=== PATIENT | male | born 1955 | race Two or more races ===

== ENCOUNTER 2022-06-02 10:54 | Emergency (ER) | payer OTHER ==
[~2022-06-02] VITALS: Ht 162.6 cm; Wt 72.7 kg
[~2022-06-02 10:54] MED LIST: IBUP800T27 PO; METH500T22 PO
[2022-06-02] MEDS ORDERED: LIDO5DIS21 TOP (13:40)
[2022-06-02] MEDS ORDERED: MORPHINE SULFATE 4 MG/ML SYR/VIAL IM ONE (13:45)
[2022-06-02] MEDS ORDERED: KETOROLAC TROMETH 30 MG/ML 1ML VIAL IM ONE (14:30)
[2022-06-02 15:05] VITALS: BP 142/76
== END 2022-06-02 13:40 | disposition home or self-care (01) ==
LOC: ER 10:54
DX: M54.50 Low back pain, unspecified (principal); G89.29 Other chronic pain; E78.5 Hyperlipidemia, unspecified; I10 Essential (primary) hypertension; Z86.73 Personal history of transient ischemic attack (TIA), and cerebral infarction without residual deficits; Z88.6 Allergy status to analgesic agent; Z88.8 Allergy status to other drugs, medicaments and biological substances
CPT/HCPCS: 96372; 99283; J1885; J2270

== ENCOUNTER 2022-06-12 07:32 | Emergency (ER) | payer OTHER, MEDICAID ==
[~2022-06-12] VITALS: Ht 167.6 cm; Wt 75.0 kg
[~2022-06-12 07:32] MED LIST changes: +LIDO5DIS21 TOP
[2022-06-12] MEDS ORDERED: ONDANSETRON HCL 4 MG/2 ML VIAL IM ONE (07:45)
[2022-06-12] MEDS ORDERED: HYDROmorphone HCL 2 MG/ML VL/or syr IM ONE (07:45)
[2022-06-12 08:34] VITALS: BP 127/81
== END 2022-06-12 08:53 | disposition home or self-care (01) ==
LOC: EDBD 07:32 → ER 07:32
DX: G89.29 Other chronic pain (principal); M54.50 Low back pain, unspecified; E78.5 Hyperlipidemia, unspecified; I10 Essential (primary) hypertension; Z86.73 Personal history of transient ischemic attack (TIA), and cerebral infarction without residual deficits; Z88.6 Allergy status to analgesic agent
CPT/HCPCS: 96372; 99284; J1170; J2405

== ENCOUNTER 2022-10-03 07:05 | Emergency (ER) | payer OTHER, MEDICAID ==
[~2022-10-03] VITALS: Ht 167.6 cm; Wt 70.0 kg
[2022-10-03 08:30] LABS: Basophils # (auto) 0.1 10 ^3/uL (0-0.2); Eosinophils # (auto) 0.3 10 ^3/uL (0-0.8); Lymphocytes # (auto) 1.8 10 ^3/uL (0.4-5.4); Monocytes # (auto) 1.1 10 ^3/uL (0-1.3)
[2022-10-03] MEDS ORDERED: IOHEXOL 350 MG/ML 100ML IJ ONE (08:38)
[2022-10-03 08:41] LABS: Hematocrit 41.1 % (41.0-53.0); Hemoglobin 13.4 g/dL (13.5-17.5); Lymphocytes % (auto) 20.5 % (10.0-50.0); Mean Corpuscular Hemoglobin 26.3 pg (28.0-32.0); Mean Corpuscular Hgb Conc. 32.7 g/dL (32.0-36.0); Mean Corpuscular Volume 80.4 fL (80.0-100.0); Monocytes % (auto) 12.1 % (0.0-12.0); Neutrophils # (auto) 5.4 10 ^3/uL (1.6-8.6); Neutrophils % (auto) 62.4 % (37.0-80.0); Red Blood Cells 5.11 10^6/uL (4.5-5.90); White Blood Cell 8.7 10^3/uL (4.4-10.8)
[2022-10-03 08:48] LABS: Albumin 3.2 g/dL (3.4-5.0); Calcium 8.7 mg/dL (8.5-10.1); Potassium 4.4 mmol/L (3.5-5.1)
[2022-10-03 08:52] LABS: BUN/Creatinine Ratio 16.7 (10.0-20.0); Bilirubin, Total 0.3 mg/dL (0.2-1.0); Total Protein 6.6 g/dL (6.4-8.2)
[2022-10-03 09:45] LABS: Urine Bacteria NONE SEEN /hpf (None Seen); Urine Blood Negative /uL (Negative); Urine Specific Gravity 1.009 (1.001-1.035); Urine WBC <1 /hpf (0 - 3)
[2022-10-03 11:46] VITALS: BP 145/70
== END 2022-10-03 11:56 | disposition home or self-care (01) ==
LOC: ER 07:05 → EDBD 07:05 → ER 11:54
DX: J06.9 Acute upper respiratory infection, unspecified (principal); R94.31 Abnormal electrocardiogram [ECG] [EKG]; E88.2 Lipomatosis, not elsewhere classified; J44.9 Chronic obstructive pulmonary disease, unspecified; E78.5 Hyperlipidemia, unspecified; I10 Essential (primary) hypertension; Z86.73 Personal history of transient ischemic attack (TIA), and cerebral infarction without residual deficits; Z88.6 Allergy status to analgesic agent; Z88.5 Allergy status to narcotic agent; Z79.899 Other long term (current) drug therapy; Z98.890 Other specified postprocedural states
CPT/HCPCS: 36415; 71275; 80053; 81001; 83880; 84484; 85025; 93005; 99285; Q9967

== ENCOUNTER 2022-10-26 15:10 | Emergency (ER) | payer OTHER, MEDICAID ==
[~2022-10-26] VITALS: Ht 167.6 cm; Wt 59.0 kg
[2022-10-26 16:32] LABS: Basophils # (auto) 0.1 10 ^3/uL (0-0.2); Basophils % (auto) 1.2 % (0.0-2.0); Eosinophils # (auto) 0.3 10 ^3/uL (0-0.8); Hemoglobin 13.2 g/dL (13.5-17.5); Monocytes # (auto) 0.7 10 ^3/uL (0-1.3); White Blood Cell 6.3 10^3/uL (4.4-10.8)
[2022-10-26 16:34] LABS: Eosinophils % (auto) 4.7 % (0.0-7.0); Hematocrit 39.5 % (41.0-53.0); Lymphocytes # (auto) 2.1 10 ^3/uL (0.4-5.4); Lymphocytes % (auto) 34.1 % (10.0-50.0); Mean Corpuscular Hemoglobin 26.9 pg (28.0-32.0); Mean Corpuscular Hgb Conc. 33.5 g/dL (32.0-36.0); Mean Corpuscular Volume 80.6 fL (80.0-100.0); Monocytes % (auto) 11.4 % (0.0-12.0); Neutrophils # (auto) 3.1 10 ^3/uL (1.6-8.6); Neutrophils % (auto) 48.6 % (37.0-80.0); Red Cell Distribution Width 13.9 % (11.8-14.3)
[2022-10-26] MEDS ORDERED: MECL1TAB42 PO (16:52)
[2022-10-26 16:54] LABS: Albumin 3.8 g/dL (3.4-5.0); Calcium 8.8 mg/dL (8.5-10.1); Potassium 3.7 mmol/L (3.5-5.1)
[2022-10-26 16:58] LABS: Bilirubin, Total 0.4 mg/dL (0.2-1.0)
[2022-10-26 18:14] LABS: Urine Bacteria NONE SEEN /hpf (None Seen); Urine Blood Negative /uL (Negative); Urine Specific Gravity 1.013 (1.001-1.035); Urine WBC <1 /hpf (0 - 3)
[2022-10-26 18:28] VITALS: BP 124/84
== END 2022-10-26 17:21 | disposition home or self-care (01) ==
LOC: ER 15:10 → EDBD 15:10 → ER 17:21
DX: R55 Syncope and collapse (principal); J44.9 Chronic obstructive pulmonary disease, unspecified; I10 Essential (primary) hypertension; Z86.73 Personal history of transient ischemic attack (TIA), and cerebral infarction without residual deficits; Z98.890 Other specified postprocedural states
CPT/HCPCS: 36415; 70450; 71045; 80053; 81001; 84484; 85025; 93005

== ENCOUNTER 2022-12-12 20:38 | Inpatient (IN) | payer OTHER, MEDICAID ==
[~2022-12-12] VITALS: Ht 167.6 cm; Wt 79.4 kg
[~2022-12-12 20:38] MED LIST changes: +IBUP-1456 PO; -IBUP800T27 PO; +MECL1TAB42 PO; +METH-1181 PO; -METH500T22 PO
[2022-12-12] MEDS ORDERED: CLOPIDOGREL BISULFATE 75 MG TAB PO ONE (23:15)
[2022-12-12] MEDS ORDERED: ASPirin 325 MG TAB PO ONE (23:15)
[2022-12-12 23:31] LABS: Eosinophils # (auto) 0.2 10 ^3/uL (0-0.8); Hemoglobin 13.3 g/dL (13.5-17.5)
[2022-12-12 23:33] LABS: Basophils # (auto) 0 10 ^3/uL (0-0.2); Basophils % (auto) 0.5 % (0.0-2.0); Eosinophils % (auto) 2.9 % (0.0-7.0); Hematocrit 40.3 % (41.0-53.0); Lymphocytes # (auto) 1.9 10 ^3/uL (0.4-5.4); Lymphocytes % (auto) 23.7 % (10.0-50.0); Mean Corpuscular Hgb Conc. 33.1 g/dL (32.0-36.0); Mean Corpuscular Volume 81.7 fL (80.0-100.0); Monocytes # (auto) 0.7 10 ^3/uL (0-1.3); Monocytes % (auto) 9.4 % (0.0-12.0); Neutrophils % (auto) 63.5 % (37.0-80.0); Red Blood Cells 4.94 10^6/uL (4.5-5.90); Red Cell Distribution Width 14.4 % (11.8-14.3); White Blood Cell 7.9 10^3/uL (4.4-10.8)
[2022-12-12 23:46] LABS: INR 1.05 (0.9-1.15); Partial Thromboplastin Time 27.9 SEC (24.5-34.5)
[2022-12-12 23:51] LABS: Albumin 3.2 g/dL (3.4-5.0); Calcium 8.3 mg/dL (8.5-10.1); Magnesium 2.4 mg/dL (1.6-2.6); Potassium 3.6 mmol/L (3.5-5.1)
[2022-12-12 23:54] LABS: Bilirubin, Total 0.7 mg/dL (0.2-1.0); Total Protein 6.9 g/dL (6.4-8.2)
[2022-12-13] MEDS ORDERED: hydrALAZINE HCL 20 MG/ML VL IV PRN
[2022-12-13] MEDS ORDERED: ONDANSETRON HCL 4 MG/2 ML VIAL IV PRN
[2022-12-13] MEDS ORDERED: IBUPROFEN 600 MG TAB PO PRN
[2022-12-13] MEDS ORDERED: DOCUSATE SOD 100 MG CAP PO PRN
[2022-12-13] MEDS ORDERED: NITROGLYCERIN 0.4 MG SL TAB SL PRN
[2022-12-13] MEDS: SODIUM CHLORIDE 0.9% 1,000 ML IV SCH ×2 (00:58→20:59)
[2022-12-13 01:18] LABS: Urine Bacteria FEW /hpf (None Seen); Urine Blood Negative /uL (Negative); Urine Mucus FEW (None Seen); Urine WBC 4 /hpf (0 - 3)
[2022-12-13 01:24] LABS: Urine Specific Gravity > 1.035 (1.001-1.035)
[2022-12-13] MEDS ORDERED: MORPHINE SULFATE INJ 2 MG/ml SYRG IV PRN ×2 (01:30)
[2022-12-13 05:37] LABS: Basophils # (auto) 0 10 ^3/uL (0-0.2); Basophils % (auto) 0.7 % (0.0-2.0); Eosinophils # (auto) 0.2 10 ^3/uL (0-0.8); Eosinophils % (auto) 2.8 % (0.0-7.0); Hematocrit 38.8 % (41.0-53.0); Hemoglobin 13.1 g/dL (13.5-17.5); Lymphocytes # (auto) 1.5 10 ^3/uL (0.4-5.4); Lymphocytes % (auto) 22.5 % (10.0-50.0); Mean Corpuscular Hemoglobin 27.2 pg (28.0-32.0); Mean Corpuscular Hgb Conc. 33.7 g/dL (32.0-36.0); Mean Corpuscular Volume 80.7 fL (80.0-100.0); Monocytes # (auto) 0.6 10 ^3/uL (0-1.3); Monocytes % (auto) 9.8 % (0.0-12.0); Neutrophils # (auto) 4.2 10 ^3/uL (1.6-8.6); Neutrophils % (auto) 64.2 % (37.0-80.0); Red Blood Cells 4.82 10^6/uL (4.5-5.90); Red Cell Distribution Width 14.3 % (11.8-14.3); White Blood Cell 6.5 10^3/uL (4.4-10.8)
[2022-12-13 05:38] LABS: Calcium 8.4 mg/dL (8.5-10.1); Potassium 3.8 mmol/L (3.5-5.1)
[2022-12-13 05:45] LABS: Albumin 3.4 g/dL (3.4-5.0); BUN/Creatinine Ratio 22.6 (10.0-20.0); Bilirubin, Total 0.7 mg/dL (0.2-1.0); Total Protein 6.5 g/dL (6.4-8.2)
[2022-12-13] MEDS ORDERED: LORazepam 2MG/ML-1ML VIAL IV PRN ×2 (11:15→13:00)
[2022-12-13] MEDS ORDERED: SODIUM CHLORIDE 0.9% 250 ML IV ONE ×2 (11:15→16:00)
[2022-12-13] MEDS: APIXABAN 5 MG TAB PO SCH ×2 (11:38→23:24)
[2022-12-13] MEDS: LISINOPRIL 20 MG TAB PO SCH (11:39)
[2022-12-13] MEDS ORDERED: IOHEXOL 350 MG/ML 100ML IJ ONE (14:27)
[2022-12-13] MEDS ORDERED: ATORVASTATIN 20 MG TAB PO SCH (22:00)
[2022-12-13 23:10] VITALS: BP 146/93
[2022-12-14] MEDS ORDERED: PNEUMOCOCCAL VACC POLYS 25 MCG/0.5 ML VIAL IM ONE (04:45)
[2022-12-14 05:00] VITALS: BP 170/93
[2022-12-14 06:14] VITALS: BP 158/62
[2022-12-14] MEDS: APIXABAN 5 MG TAB PO SCH (08:56)
[2022-12-14] MEDS: LISINOPRIL 20 MG TAB PO SCH (08:57)
[2022-12-14 09:00] VITALS: BP 143/80
[2022-12-14] MEDS: SODIUM CHLORIDE 0.9% 1,000 ML IV SCH (09:20)
[2022-12-14 11:51] VITALS: BP 143/80
== END 2022-12-14 13:00 | disposition home or self-care (01) | DRG 291 ==
LOC: EDBD 20:38 → EDSEX 20:38 → ER 20:38 → TELE 23:46 → TELE-WESTW 12-13 22:19
PROVIDERS: ADMIT Nurse Practitioner Family; ATTEND Internal Medicine
DX: I11.0 Hypertensive heart disease with heart failure (principal); I50.43 Acute on chronic combined systolic (congestive) and diastolic (congestive) heart failure; N17.9 Acute kidney failure, unspecified; E66.9 Obesity, unspecified; E78.5 Hyperlipidemia, unspecified; E89.0 Postprocedural hypothyroidism; I25.10 Atherosclerotic heart disease of native coronary artery without angina pectoris; J44.9 Chronic obstructive pulmonary disease, unspecified; Z79.01 Long term (current) use of anticoagulants; Z88.6 Allergy status to analgesic agent; Z88.8 Allergy status to other drugs, medicaments and biological substances; Z68.28 Body mass index [BMI] 28.0-28.9, adult; Z85.828 Personal history of other malignant neoplasm of skin; Z90.49 Acquired absence of other specified parts of digestive tract; Z91.199 Patient's noncompliance with other medical treatment and regimen due to unspecified reason; Z86.73 Personal history of transient ischemic attack (TIA), and cerebral infarction without residual deficits
CPT/HCPCS: 36415; 71045; 71275; 80053; 81001; 83735; 83880; 84439; 84443; 84484; 85025; 85610; 85730; 93005; 93306; 93970; 96360; 96361; G0378

== ENCOUNTER 2023-04-15 15:28 | Observation (INO) | payer OTHER, MEDICAID ==
[~2023-04-15] VITALS: Ht 30.5 cm; Wt 83.5 kg
[2023-04-15 22:44] VITALS: BP 143/80; PULSE 60; RESP 20; TEMP 98.2; O2SAT 100; O2SAT 96
[2023-04-16] VITALS (8 sets, daily range): BP systolic 110–143; BP diastolic 78–93; PULSE 72–123; RESP 17–19; TEMP 98–98.3; O2SAT 91–98
[2023-04-16] MEDS ORDERED: CARISOPRODOL 350 MG TAB PO PRN (01:30)
[2023-04-16 02:19] LABS: Eosinophils # (auto) 0.2 10 ^3/uL (0-0.8); Eosinophils % (auto) 2.9 % (0.0-7.0); Hemoglobin 13.3 g/dL (13.5-17.5); Lymphocytes # (auto) 1.6 10 ^3/uL (0.4-5.4); Mean Corpuscular Volume 80.5 fL (80.0-100.0); Monocytes # (auto) 0.8 10 ^3/uL (0-1.3); White Blood Cell 7.3 10^3/uL (4.4-10.8)
[2023-04-16 02:21] LABS: Basophils # (auto) 0 10 ^3/uL (0-0.2); Basophils % (auto) 0.3 % (0.0-2.0); Hematocrit 40.5 % (41.0-53.0); Lymphocytes % (auto) 22.5 % (10.0-50.0); Mean Corpuscular Hemoglobin 26.4 pg (28.0-32.0); Mean Corpuscular Hgb Conc. 32.8 g/dL (32.0-36.0); Monocytes % (auto) 10.7 % (0.0-12.0); Neutrophils # (auto) 4.6 10 ^3/uL (1.6-8.6); Neutrophils % (auto) 63.6 % (37.0-80.0); Red Blood Cells 5.03 10^6/uL (4.5-5.90); Red Cell Distribution Width 14.9 % (11.8-14.3)
[2023-04-16 02:33] LABS: INR 1.02 (0.9-1.15); Partial Thromboplastin Time 28.6 SEC (24.5-34.5); Prothrombin Time 10.7 sec (9.3-11.8)
[2023-04-16 02:38] LABS: Alanine Aminotransferase 14 U/L (7-40); Albumin 3.9 g/dL (3.2-4.8); Alkaline Phosphatase 77 U/L (46-116); Anion Gap 6 (5-15); Aspartate Aminotransferase 12 U/L (13-40); BUN/Creatinine Ratio 15.1 (10.0-20.0); Blood Urea Nitrogen 16 mg/dL (9-23); Calcium 8.7 mg/dL (8.7-10.4); Carbon Dioxide 26 mmol/L (20-30); Chloride 105 mmol/L (98-107); Glucose 98 mg/dL (74-106); Potassium 3.9 mmol/L (3.5-5.1); Sodium 137 mmol/L (136-145)
[2023-04-16 02:39] LABS: Bilirubin, Total 0.7 mg/dL (0.2-1.0); Total Protein 6.5 g/dL (5.7-8.2)
[2023-04-16 07:07] LABS: Urine Bacteria NONE SEEN /hpf (None Seen); Urine Blood Negative /uL (Negative); Urine Clarity Clear (Clear); Urine Color Yellow (Yellow); Urine Mucus FEW (None Seen); Urine Protein, UAD TRACE (Negative); Urine Urobilinogen Normal (Negative); Urine WBC 1 /hpf (0 - 3)
[2023-04-16 07:43] LABS: Urine Specific Gravity > 1.050 (1.001-1.035)
[2023-04-16 08:41] LABS: Hepatitis B Surface Antigen Negative (Negative)
[2023-04-16 09:02] LABS: Hepatitis C Antibody Negative (Negative)
[2023-04-16] MEDS: APIXABAN 5 MG TAB PO SCH ×2 (09:56→21:15)
[2023-04-16] MEDS: PROPRANOLOL HCL 20 MG TAB PO SCH (09:56)
[2023-04-16] MEDS: LISINOPRIL 20 MG TAB PO SCH (09:57)
[2023-04-16] MEDS ORDERED: ASPI81CH59 PO (09:59)
[2023-04-16] MEDS ORDERED: APIX5TAB PO (09:59)
[2023-04-16] MEDS ORDERED: LISI20TA56 PO (09:59)
[2023-04-16] MEDS ORDERED: CHOL20003 PO (09:59)
[2023-04-16] MEDS ORDERED: ACET650T12 PO (09:59)
[2023-04-16] MEDS ORDERED: ROSU1TAB15 PO (09:59)
[2023-04-16] MEDS ORDERED: IBUP1TAB5 PO (09:59)
[2023-04-16] MEDS ORDERED: CHOL20002 PO (09:59)
[2023-04-16] MEDS ORDERED: PROP40TA6 PO (09:59)
[2023-04-16] MEDS ORDERED: TAMS0.4C36 PO (09:59)
[2023-04-16] MEDS ORDERED: CYCL-614 PO (09:59)
[2023-04-16] MEDS ORDERED: MECL-126 PO (09:59)
[2023-04-16] MEDS ORDERED: CARI350T28 PO (09:59)
[2023-04-16] MEDS ORDERED: BACL5TAB2 PO (09:59)
[2023-04-16] MEDS ORDERED: OMEP-448 (09:59)
[2023-04-16] MEDS ORDERED: ASPirin 81 mg TAB PO SCH (10:00)
[2023-04-16] MEDS ORDERED: LORazepam 2MG/ML-1ML VIAL IV ONE (11:00)
[2023-04-16] MEDS ORDERED: MORPHINE SULFATE INJ 2 MG/ml SYRG IV PRN (11:15)
[2023-04-16] MEDS ORDERED: NITROGLYCERIN 0.4 MG SL TAB SL PRN (11:15)
[2023-04-16] MEDS: ACETAMINOPHEN 325 MG TAB PO PRN ×2 (16:40→21:12)
[2023-04-16] MEDS ORDERED: TAMSULOSIN HYDROCHLORIDE 0.4 MG CAP PO SCH (18:00)
[2023-04-16] MEDS ORDERED: ATORVASTATIN 20 MG TAB PO SCH (22:00)
[2023-04-17 05:00] VITALS: BP 141/85; PULSE 95; RESP 16; TEMP 98; O2SAT 92
[2023-04-17 07:16] LABS: Basophils # (auto) 0 10 ^3/uL (0-0.2); Basophils % (auto) 0.7 % (0.0-2.0); Eosinophils # (auto) 0.1 10 ^3/uL (0-0.8); Hemoglobin 13.9 g/dL (13.5-17.5); Monocytes # (auto) 0.7 10 ^3/uL (0-1.3); Neutrophils # (auto) 4.3 10 ^3/uL (1.6-8.6)
[2023-04-17 07:20] LABS: Eosinophils % (auto) 1.6 % (0.0-7.0); Hematocrit 41.1 % (41.0-53.0); Lymphocytes # (auto) 1.7 10 ^3/uL (0.4-5.4); Lymphocytes % (auto) 24.6 % (10.0-50.0); Mean Corpuscular Hemoglobin 27.1 pg (28.0-32.0); Mean Corpuscular Hgb Conc. 33.8 g/dL (32.0-36.0); Mean Corpuscular Volume 80.2 fL (80.0-100.0); Monocytes % (auto) 9.7 % (0.0-12.0); Neutrophils % (auto) 63.4 % (37.0-80.0); Nucleated Red Blood Cells % 0.2 %; Red Blood Cells 5.13 10^6/uL (4.5-5.90); White Blood Cell 6.7 10^3/uL (4.4-10.8)
[2023-04-17 07:27] LABS: Anion Gap 9 (5-15); Calcium 9.1 mg/dL (8.5-10.1); Carbon Dioxide 24 mmol/L (20-30); Chloride 103 mmol/L (98-107); Sodium 136 mmol/L (136-145)
[2023-04-17 07:33] LABS: BUN/Creatinine Ratio 11.3 (10.0-20.0); Blood Urea Nitrogen 12 mg/dL (9-23); Glucose 120 mg/dL (74-106)
[2023-04-17 08:00] VITALS: PULSE 105; PULSE 110; RESP 18; O2SAT 98
[2023-04-17] MEDS: ACETAMINOPHEN 325 MG TAB PO PRN ×2 (08:48→12:40)
[2023-04-17 09:00] VITALS: BP 129/84; PULSE 124; RESP 16; TEMP 98.4; O2SAT 93
[2023-04-17] MEDS: APIXABAN 5 MG TAB PO SCH (09:23)
[2023-04-17] MEDS: LISINOPRIL 20 MG TAB PO SCH (09:24)
[2023-04-17] MEDS: PROPRANOLOL HCL 20 MG TAB PO SCH (09:25)
[2023-04-17] MEDS ORDERED: PNEUMOCOCCAL VACC POLYS 25 MCG/0.5 ML VIAL IM ONE (10:00)
[2023-04-17] MEDS ORDERED: ASPirin 81 mg TAB PO SCH (10:00)
[2023-04-17] MEDS ORDERED: PANTOPRAZOLE 40 MG TAB PO SCH (10:00)
[2023-04-17 14:37] VITALS: BP 129/84; PULSE 94; RESP 17; TEMP 98.6; O2SAT 94
[2023-04-17] MEDS ORDERED: APIX5TAB PO (14:44)
[2023-04-17] MEDS ORDERED: LISI20TA56 PO (14:44)
[2023-04-17] MEDS ORDERED: ASPI81CH59 PO (14:44)
[2023-04-17] MEDS ORDERED: ROSU1TAB15 PO (14:44)
== END 2023-04-17 16:00 | disposition home or self-care (01) ==
LOC: INTOOBSV 22:06 → TELE-WESTW 22:06
PROVIDERS: ADMIT Internal Medicine
DX: G45.9 Transient cerebral ischemic attack, unspecified (principal); R53.1 Weakness; I10 Essential (primary) hypertension; R29.810 Facial weakness; K21.9 Gastro-esophageal reflux disease without esophagitis; E78.5 Hyperlipidemia, unspecified; E89.0 Postprocedural hypothyroidism; Z85.828 Personal history of other malignant neoplasm of skin; Z88.6 Allergy status to analgesic agent; Z88.5 Allergy status to narcotic agent; Z86.73 Personal history of transient ischemic attack (TIA), and cerebral infarction without residual deficits; Z79.82 Long term (current) use of aspirin; Z79.899 Other long term (current) drug therapy
CPT/HCPCS: 36415; 70551; 71045; 80048; 80053; 81001; 85025; 85379; 85610; 85730; 86803; 87340; 90732; 92523; 92610; 93886; 96374; 97110; 97116; 97163; G0009; G0378; J2060; 96372

== ENCOUNTER 2023-05-27 07:37 | Day surgery (SDC) | payer OTHER, MEDICAID ==
[2023-05-18 12:55] LABS: Basophils # (auto) 0.1 10 ^3/uL (0-0.2); Lymphocytes # (auto) 1.9 10 ^3/uL (0.4-5.4)
[2023-05-18 12:58] LABS: Basophils % (auto) 0.7 % (0.0-2.0); Eosinophils # (auto) 0.3 10 ^3/uL (0-0.8); Eosinophils % (auto) 3.7 % (0.0-7.0); Hematocrit 38.8 % (41.0-53.0); Hemoglobin 12.9 g/dL (13.5-17.5); Lymphocytes % (auto) 27.3 % (10.0-50.0); Mean Corpuscular Hemoglobin 26.3 pg (28.0-32.0); Mean Corpuscular Hgb Conc. 33.2 g/dL (32.0-36.0); Mean Corpuscular Volume 79.5 fL (80.0-100.0); Monocytes # (auto) 0.8 10 ^3/uL (0-1.3); Monocytes % (auto) 11.1 % (0.0-12.0); Neutrophils % (auto) 57.2 % (37.0-80.0); Red Blood Cells 4.89 10^6/uL (4.5-5.90)
[2023-05-18 13:20] LABS: INR 1.04 (0.9-1.15); Partial Thromboplastin Time 29.3 SEC (24.5-34.5); Prothrombin Time 10.9 sec (9.3-11.8)
[2023-05-18 13:30] LABS: Alanine Aminotransferase 13 U/L (7-40); Alkaline Phosphatase 70 U/L (46-116); Anion Gap 7 (5-15); BUN/Creatinine Ratio 11.2 (10.0-20.0); Blood Urea Nitrogen 14 mg/dL (9-23); Calcium 9.4 mg/dL (8.5-10.1); Carbon Dioxide 29 mmol/L (20-30); Chloride 105 mmol/L (98-107); Glucose 110 mg/dL (74-106); Potassium 4.3 mmol/L (3.5-5.1); Sodium 141 mmol/L (136-145)
[2023-05-18 13:31] LABS: Albumin 4.3 g/dL (3.2-4.8); Aspartate Aminotransferase 15 U/L (13-40); Bilirubin, Total 0.5 mg/dL (0.2-1.0)
[2023-05-18 13:32] LABS: Total Protein 7.1 g/dL (5.7-8.2)
[2023-05-26 10:52] LABS: Basophils # (auto) 0.1 10 ^3/uL (0-0.2); Eosinophils # (auto) 0.3 10 ^3/uL (0-0.8); Eosinophils % (auto) 5.2 % (0.0-7.0); Hematocrit 38.5 % (41.0-53.0); Monocytes # (auto) 0.7 10 ^3/uL (0-1.3); Neutrophils # (auto) 3.2 10 ^3/uL (1.6-8.6); Nucleated Red Blood Cells % 0.1 %; Red Cell Distribution Width 14.5 % (11.8-14.3)
[2023-05-26 10:55] LABS: Basophils % (auto) 1.1 % (0.0-2.0); Hemoglobin 12.7 g/dL (13.5-17.5); Lymphocytes % (auto) 31.4 % (10.0-50.0); Mean Corpuscular Hemoglobin 26.3 pg (28.0-32.0); Mean Corpuscular Hgb Conc. 32.9 g/dL (32.0-36.0); Mean Corpuscular Volume 79.9 fL (80.0-100.0); Monocytes % (auto) 10.7 % (0.0-12.0); Neutrophils % (auto) 51.6 % (37.0-80.0); Red Blood Cells 4.82 10^6/uL (4.5-5.90); White Blood Cell 6.2 10^3/uL (4.4-10.8)
[2023-05-26 11:00] LABS: INR 1.04 (0.9-1.15); Partial Thromboplastin Time 30.5 SEC (24.5-34.5); Prothrombin Time 10.9 sec (9.3-11.8)
[2023-05-26 11:16] LABS: Alanine Aminotransferase 16 U/L (7-40); Albumin 4.1 g/dL (3.2-4.8); Alkaline Phosphatase 77 U/L (46-116); Anion Gap 6 (5-15); Aspartate Aminotransferase 15 U/L (13-40); BUN/Creatinine Ratio 15.4 (10.0-20.0); Blood Urea Nitrogen 19 mg/dL (9-23); Calcium 9.3 mg/dL (8.5-10.1); Carbon Dioxide 28 mmol/L (20-30); Chloride 106 mmol/L (98-107); Glucose 115 mg/dL (74-106); Potassium 4.2 mmol/L (3.5-5.1); Sodium 140 mmol/L (136-145)
[2023-05-26 11:17] LABS: Bilirubin, Total 0.3 mg/dL (0.2-1.0); Total Protein 6.8 g/dL (5.7-8.2)
[~2023-05-27] VITALS: Ht 167.6 cm; Wt 78.9 kg
[~2023-05-27 07:37] MED LIST changes: +APIX5TAB PO; +ASPI81CH59 PO; +BACL5TAB2 PO; +CARI350T28 PO; +CHOL20003 PO; +CYCL-614 PO; -IBUP-1456 PO; +IBUP1TAB5 PO; -LIDO5DIS21 TOP; +LISI20TA56 PO; +MECL-126 PO; -MECL1TAB42 PO; -METH-1181 PO; +OMEP-448; +PROP40TA6 PO; +ROSU1TAB15 PO
[2023-05-27] MEDS ORDERED: LIDOCAINE VISCOUS 2% 15ML UD MT ONE (09:00)
[2023-05-27] MEDS ORDERED: fentaNYL CITRATE 100 MCG/2 ML VL IV ONE (09:00)
[2023-05-27] MEDS ORDERED: MIDAZOLAM HCL 2MG/2ML 2ml VIAL (1mg/ml) IV ONE (09:00)
== END 2023-05-27 10:29 | disposition home or self-care (01) ==
LOC: CATH 07:37
PROVIDERS: ATTEND Student in an Organized Health Care Education/Training Program
DX: I11.0 Hypertensive heart disease with heart failure (principal); I50.9 Heart failure, unspecified; J44.9 Chronic obstructive pulmonary disease, unspecified; F41.9 Anxiety disorder, unspecified; E78.5 Hyperlipidemia, unspecified; Z88.6 Allergy status to analgesic agent; Z86.73 Personal history of transient ischemic attack (TIA), and cerebral infarction without residual deficits; Z79.1 Long term (current) use of non-steroidal anti-inflammatories (NSAID); Z79.82 Long term (current) use of aspirin; Z79.899 Other long term (current) drug therapy
CPT/HCPCS: 36415; 80053; 85025; 85610; 85730; 93312; J2250; J3010; J7040; 99152

== ENCOUNTER 2023-07-15 07:50 | Emergency (ER) | payer OTHER, MEDICAID ==
[~2023-07-15] VITALS: Ht 167.6 cm; Wt 81.8 kg
[2023-07-15 08:18] VITALS: PULSE 55; RESP 15; O2SAT 95
[2023-07-15 09:28] LABS: Basophils # (auto) 0.1 10 ^3/uL (0-0.2); Eosinophils # (auto) 0.2 10 ^3/uL (0-0.8); Eosinophils % (auto) 3.9 % (0.0-7.0); Hematocrit 37.6 % (41.0-53.0); Hemoglobin 12.1 g/dL (13.5-17.5); Lymphocytes # (auto) 1.8 10 ^3/uL (0.4-5.4); Lymphocytes % (auto) 32.4 % (10.0-50.0); Mean Corpuscular Hemoglobin 25.5 pg (28.0-32.0); Mean Corpuscular Hgb Conc. 32.2 g/dL (32.0-36.0); Mean Corpuscular Volume 79.4 fL (80.0-100.0); Monocytes # (auto) 0.6 10 ^3/uL (0-1.3); Monocytes % (auto) 11.6 % (0.0-12.0); Neutrophils # (auto) 2.9 10 ^3/uL (1.6-8.6); Neutrophils % (auto) 51.1 % (37.0-80.0); Nucleated Red Blood Cells % 0.1 %; Red Blood Cells 4.74 10^6/uL (4.5-5.90); Red Cell Distribution Width 14.5 % (11.8-14.3); White Blood Cell 5.6 10^3/uL (4.4-10.8)
[2023-07-15 09:46] LABS: Alanine Aminotransferase 16 U/L (7-40); Alkaline Phosphatase 85 U/L (46-116); Anion Gap 4 (5-15); Aspartate Aminotransferase 21 U/L (13-40); BUN/Creatinine Ratio 14.4 (10.0-20.0); Blood Urea Nitrogen 18 mg/dL (9-23); Calcium 9.1 mg/dL (8.5-10.1); Carbon Dioxide 27 mmol/L (20-30); Chloride 107 mmol/L (98-107); Glucose 102 mg/dL (74-106); Potassium 4.9 mmol/L (3.5-5.1); Sodium 138 mmol/L (136-145)
[2023-07-15 09:47] LABS: Bilirubin, Total 0.3 mg/dL (0.2-1.0); Total Protein 6.7 g/dL (5.7-8.2)
[2023-07-15 10:25] LABS: Lipase 46 U/L (12-53)
[2023-07-15 14:00] VITALS: BP 122/76; PULSE 84; RESP 15; O2SAT 93
[2023-07-15] MEDS ORDERED: DOCU-94 PO (14:02)
[2023-07-15 14:29] LABS: Urine Epithelial Cast None Seen /hpf (<5)
[2023-07-15 14:51] LABS: Urine Bacteria NONE SEEN /hpf (None Seen); Urine Blood Negative /uL (Negative); Urine Clarity Clear (Clear); Urine Color Colorless (Yellow); Urine Protein, UAD Negative (Negative); Urine Urobilinogen Normal (Negative); Urine WBC <1 /hpf (0 - 3); Urine pH 5.5 (5.0-8.0)
== END 2023-07-15 15:31 | disposition home or self-care (01) ==
LOC: ER 07:50 → EDBD 07:50 → ER 15:31
DX: K57.30 Diverticulosis of large intestine without perforation or abscess without bleeding (principal); R10.11 Right upper quadrant pain; I10 Essential (primary) hypertension; E78.5 Hyperlipidemia, unspecified; J44.9 Chronic obstructive pulmonary disease, unspecified; Z86.73 Personal history of transient ischemic attack (TIA), and cerebral infarction without residual deficits; Z98.890 Other specified postprocedural states; Z88.8 Allergy status to other drugs, medicaments and biological substances; Z79.899 Other long term (current) drug therapy
CPT/HCPCS: 36415; 74176; 80053; 81001; 83690; 85025; 93005

== ENCOUNTER → 2023-11-04 | Emergency (ER) | payer OTHER, MEDICAID ==
[~2023-11-04] MED LIST changes: +CARI-579 PO; -CARI350T28 PO; +DOCU-94 PO; -ROSU1TAB15 PO; +ROSU40TA47 PO
== END | disposition left against medical advice (07) ==
LOC: ER 15:13
DX: R06.02 Shortness of breath (principal); Z53.21 Procedure and treatment not carried out due to patient leaving prior to being seen by health care provider

== ENCOUNTER → 2023-11-17 | Outpatient (CLI) | payer OTHER, MEDICAID ==
[2023-11-17 09:58] LABS: Alanine Aminotransferase 12 U/L (7-40); Albumin 4.3 g/dL (3.2-4.8); Alkaline Phosphatase 73 U/L (46-116); Anion Gap 4 (5-15); Aspartate Aminotransferase 13 U/L (13-40); BUN/Creatinine Ratio 14.9 (10.0-20.0); Blood Urea Nitrogen 20 mg/dL (9-23); Calcium 9.4 mg/dL (8.5-10.1); Carbon Dioxide 28 mmol/L (20-30); Chloride 106 mmol/L (98-107); Glucose 118 mg/dL (74-106); Potassium 4.7 mmol/L (3.5-5.1); Sodium 138 mmol/L (136-145)
[2023-11-17 09:59] LABS: Bilirubin, Total 0.6 mg/dL (0.2-1.0)
== END | disposition home or self-care (01) ==
LOC: LAB 09:07
PROVIDERS: ATTEND Student in an Organized Health Care Education/Training Program
DX: I11.0 Hypertensive heart disease with heart failure (principal); I50.9 Heart failure, unspecified
CPT/HCPCS: 36415; 80053; 83880

== ENCOUNTER → 2023-11-20 | Outpatient (CLI) | payer OTHER, MEDICAID | END | disposition home or self-care (01) | LOC: XYW 10:02 | PROVIDERS: ATTEND Student in an Organized Health Care Education/Training Program | DX: I51.89 Other ill-defined heart diseases (principal); I50.9 Heart failure, unspecified | CPT/HCPCS: 93306 ==

== ENCOUNTER 2023-12-27 16:18 | Inpatient (IN) | payer OTHER, MEDICAID ==
[~2023-12-27] VITALS: Ht 165.1 cm; Wt 81.5 kg
[2023-12-27 19:30] VITALS: BP 142/91; PULSE 55; RESP 18; TEMP 98.1; O2SAT 96
[2023-12-27] MEDS ORDERED: MORPHINE SULFATE INJ 2 MG/ml SYRG IV PRN (20:30)
[2023-12-27] MEDS ORDERED: NITROGLYCERIN 0.4 MG SL TAB SL PRN (20:30)
[2023-12-27 20:51] VITALS: BP 142/91; PULSE 55; RESP 18; TEMP 98.1; O2SAT 96
[2023-12-27 22:00] VITALS: BP 140/89; PULSE 71; RESP 19; TEMP 98.2; O2SAT 94
[2023-12-27] MEDS: PANTOPRAZOLE 40 MG TAB PO ONE (22:04)
[2023-12-27] MEDS: PROPRANOLOL HCL 20 MG TAB PO SCH (22:04)
[2023-12-27] MEDS: APIXABAN 5 MG TAB PO SCH (22:04)
[2023-12-27] MEDS: DOCUSATE SOD 100 MG CAP PO SCH (22:04)
[2023-12-28] VITALS (7 sets, daily range): BP systolic 120–146; BP diastolic 75–80; PULSE 53–79; RESP 16–20; TEMP 97.8–98.9; O2SAT 93–100
[2023-12-28] MEDS: ONDANSETRON HCL 4 MG/2 ML VIAL IV ONE (05:00)
[2023-12-28] MEDS: ACETAMINOPHEN 325 MG TAB PO ONE (05:22)
[2023-12-28] MEDS: PANTOPRAZOLE 40 MG TAB PO SCH (05:22)
[2023-12-28 06:18] LABS: Basophils # (auto) 0 10 ^3/uL (0-0.2); Eosinophils # (auto) 0.2 10 ^3/uL (0-0.8); Eosinophils % (auto) 2.6 % (0.0-7.0); Hemoglobin 13.3 g/dL (13.5-17.5); Lymphocytes # (auto) 1.3 10 ^3/uL (0.4-5.4); Monocytes # (auto) 0.7 10 ^3/uL (0-1.3); Neutrophils # (auto) 5.1 10 ^3/uL (1.6-8.6); Red Cell Distribution Width 14.9 % (11.8-14.3)
[2023-12-28 06:21] LABS: Basophils % (auto) 0.7 % (0.0-2.0); Hematocrit 40.2 % (41.0-53.0); Mean Corpuscular Hemoglobin 25.2 pg (28.0-32.0); Mean Corpuscular Hgb Conc. 33.2 g/dL (32.0-36.0); Monocytes % (auto) 9.3 % (0.0-12.0); Neutrophils % (auto) 69.4 % (37.0-80.0); Red Blood Cells 5.29 10^6/uL (4.5-5.90); White Blood Cell 7.4 10^3/uL (4.4-10.8)
[2023-12-28 06:24] LABS: Alanine Aminotransferase 13 U/L (7-40); Albumin 4.4 g/dL (3.2-4.8); Alkaline Phosphatase 81 U/L (46-116); Anion Gap 7 (5-15); Aspartate Aminotransferase 13 U/L (13-40); BUN/Creatinine Ratio 11.6 (10.0-20.0); Bilirubin, Total 0.7 mg/dL (0.2-1.0); Blood Urea Nitrogen 13 mg/dL (9-23); Calcium 9.5 mg/dL (8.5-10.1); Carbon Dioxide 27 mmol/L (20-30); Chloride 104 mmol/L (98-107); Cholesterol 139 mg/dL (< 200); Glucose 111 mg/dL (74-106); HDL Cholesterol 30 mg/dL (40-59); LDL Cholesterol 73 mg/dL (< 100); Potassium 3.7 mmol/L (3.5-5.1); Sodium 138 mmol/L (136-145); Total Protein 7.2 g/dL (5.7-8.2); Triglycerides 169 mg/dL (< 150)
[2023-12-28 08:12] LABS: INR 1.05 (0.9-1.15); Partial Thromboplastin Time 28.8 SEC (24.5-34.5); Prothrombin Time 11.1 sec (9.3-11.8)
[2023-12-28] MEDS: LISINOPRIL 20 MG TAB PO SCH (09:35)
[2023-12-28] MEDS: ASPirin 81 mg TAB PO SCH (09:35)
[2023-12-28] MEDS ORDERED: PATIENTS OWN MEDICATION (Aspirin (Aspirin Low Dose) 1 TAB) PO SCH (10:00)
[2023-12-28 10:28] LABS: Urine Bacteria None Seen /hpf (None Seen)
[2023-12-28 10:48] LABS: Urine Blood Negative /uL (Negative); Urine Clarity Clear (Clear); Urine Color Yellow (Yellow); Urine Mucus FEW (None Seen); Urine Protein, UAD TRACE (Negative); Urine Specific Gravity 1.025 (1.001-1.035); Urine Urobilinogen 2 mg/dL (Negative); Urine WBC 1 /hpf (0 - 3); Urine pH 6.5 (5.0-9.0)
[2023-12-28 11:05] LABS: Amphetamine Screen, Urine Neg (NEGATIVE); Barbiturate Scree,Urine Neg (NEGATIVE); Benzodiazephine Screen, Urine Neg (NEGATIVE); Cannabinoid Screen, Urine Neg (NEGATIVE); Cocaine Screen, Urine Neg (NEGATIVE); Opiate Scree,Urine Neg (NEGATIVE); Phencyclidine Screen, Urine Neg (NEGATIVE)
[2023-12-28 11:38] LABS: Free T3 2.96 pg/mL (2.3-4.2)
[2023-12-28 11:39] LABS: Free T4 (Free Thyroxine) 0.99 ng/dL (0.89-1.76)
[2023-12-28] MEDS: ACETAMINOPHEN 325 MG TAB PO PRN (14:33)
[2023-12-28] MEDS: ATORVASTATIN 20 MG TAB PO SCH (21:37)
[2023-12-29] VITALS (7 sets, daily range): BP systolic 138–156; BP diastolic 74–85; PULSE 55–76; RESP 16–20; TEMP 36.9; O2SAT 92–96
[2023-12-29 08:06] LABS: RPR Non Reactive (Non Reactive)
[2023-12-29] MEDS: LORazepam 2MG/ML-1ML VIAL IV PRN (09:16)
[2023-12-29] MEDS: CLOPIDOGREL BISULFATE 75 MG TAB PO SCH (10:22)
[2023-12-29] MEDS ORDERED: ACET-1882 PO (19:42)
[2023-12-29] MEDS ORDERED: CLOP75TA70 PO (19:42)
[2023-12-29] MEDS ORDERED: PANT40T PO (19:42)
[2023-12-29] MEDS ORDERED: ATOR20TA50 PO (19:42)
== END 2023-12-29 20:25 | disposition home or self-care (01) | DRG 69 ==
LOC: UNDOADMIN 18:54 → TELE-E-ADS 18:54 → EAST 20:33
PROVIDERS: ADMIT Internal Medicine; ATTEND Internal Medicine
DX: G45.9 Transient cerebral ischemic attack, unspecified (principal); I69.351 Hemiplegia and hemiparesis following cerebral infarction affecting right dominant side; E78.5 Hyperlipidemia, unspecified; H54.62 Unqualified visual loss, left eye, normal vision right eye; I10 Essential (primary) hypertension; J44.9 Chronic obstructive pulmonary disease, unspecified; K21.9 Gastro-esophageal reflux disease without esophagitis; Z85.828 Personal history of other malignant neoplasm of skin; Z83.3 Family history of diabetes mellitus; Z82.49 Family history of ischemic heart disease and other diseases of the circulatory system; Z82.3 Family history of stroke; Z87.891 Personal history of nicotine dependence; Z79.899 Other long term (current) drug therapy; Z79.82 Long term (current) use of aspirin; Z79.02 Long term (current) use of antithrombotics/antiplatelets; Z79.01 Long term (current) use of anticoagulants
CPT/HCPCS: 36415; 70551; 80053; 80061; 80307; 81001; 82306; 82607; 83036; 84439; 84443; 84481; 85025; 85610; 85730; 86592; 87081; 93886; 95819; 97163; G0378

== ENCOUNTER 2024-02-02 09:22 | Emergency (ER) | payer OTHER, MEDICAID ==
[~2024-02-02] VITALS: Ht 167.6 cm; Wt 70.4 kg
[~2024-02-02 09:22] MED LIST changes: +ACET-1882 PO; +ATOR20TA50 PO; +CLOP75TA70 PO; -IBUP1TAB5 PO; +PANT40T PO; -ROSU40TA47 PO
[2024-02-02 09:55] LABS: Eosinophils # (auto) 0.1 10 ^3/uL (0-0.8); Monocytes # (auto) 0.7 10 ^3/uL (0-1.3); Neutrophils # (auto) 2.7 10 ^3/uL (1.6-8.6); White Blood Cell 5.2 10^3/uL (4.4-10.8)
[2024-02-02 09:56] LABS: Basophils # (auto) 0.1 10 ^3/uL (0-0.2); Basophils % (auto) 1.1 % (0.0-2.0); Eosinophils % (auto) 1.8 % (0.0-7.0); Hematocrit 39.1 % (41.0-53.0); Hemoglobin 12.8 g/dL (13.5-17.5); Lymphocytes # (auto) 1.6 10 ^3/uL (0.4-5.4); Lymphocytes % (auto) 31.2 % (10.0-50.0); Mean Corpuscular Hgb Conc. 32.6 g/dL (32.0-36.0); Mean Corpuscular Volume 76.7 fL (80.0-100.0); Monocytes % (auto) 12.8 % (0.0-12.0); Neutrophils % (auto) 53.1 % (37.0-80.0); Nucleated Red Blood Cells % 0.1 %; Red Cell Distribution Width 16.4 % (11.8-14.3)
[2024-02-02 10:03] LABS: Chloride 105 mmol/L (98-107); Potassium 3.7 mmol/L (3.5-5.1); Sodium 138 mmol/L (136-145)
[2024-02-02 10:04] LABS: Anion Gap 5 (5-15); Calcium 9.5 mg/dL (8.7-10.4); Carbon Dioxide 28 mmol/L (20-30)
[2024-02-02 10:09] LABS: Blood Urea Nitrogen 17 mg/dL (9-23); Glucose 96 mg/dL (74-106)
[2024-02-02 11:14] LABS: Urine Bacteria None Seen /hpf (None Seen)
[2024-02-02 11:58] LABS: Urine Blood TRACE /uL (Negative); Urine Clarity Clear (Clear); Urine Color Light-Yellow (Yellow); Urine Mucus FEW (None Seen); Urine Protein, UAD TRACE (Negative); Urine Specific Gravity 1.011 (1.001-1.035); Urine Urobilinogen Normal (Negative); Urine WBC 1 /hpf (0 - 3); Urine pH 5.5 (5.0-9.0)
[2024-02-02] MEDS: LIDOCAINE VISCOUS 2% 15ML UD PO ONE (13:26)
[2024-02-02] MEDS: DONNATAL 5ml ORAL Elix (BELLADONNA ALK-PHENOBARB) PO ONE (13:26)
[2024-02-02] MEDS: MAALOX PLUS or MAALOX 30 ML PO ONE (13:26)
[2024-02-02 15:23] VITALS: BP 143/86; PULSE 100; RESP 18; TEMP 97.8; O2SAT 95
== END 2024-02-02 15:24 | disposition home or self-care (01) ==
LOC: EDBD 09:22 → ER 09:34
DX: R10.33 Periumbilical pain (principal); J44.9 Chronic obstructive pulmonary disease, unspecified; E78.5 Hyperlipidemia, unspecified; I10 Essential (primary) hypertension; Z86.73 Personal history of transient ischemic attack (TIA), and cerebral infarction without residual deficits; Z88.6 Allergy status to analgesic agent
CPT/HCPCS: 36415; 74176; 80048; 81001; 84484; 85025

== ENCOUNTER → 2024-02-08 | Outpatient (CLI) | payer OTHER, MEDICAID ==
[2024-02-08 10:14] LABS: Basophils # (auto) 0 10 ^3/uL (0-0.2); Basophils % (auto) 0.9 % (0.0-2.0); Eosinophils # (auto) 0.2 10 ^3/uL (0-0.8); Eosinophils % (auto) 2.9 % (0.0-7.0); Hematocrit 37.9 % (41.0-53.0); Hemoglobin 12.4 g/dL (13.5-17.5); Lymphocytes # (auto) 1.7 10 ^3/uL (0.4-5.4); Lymphocytes % (auto) 31.9 % (10.0-50.0); Mean Corpuscular Hemoglobin 25.3 pg (28.0-32.0); Mean Corpuscular Hgb Conc. 32.8 g/dL (32.0-36.0); Mean Corpuscular Volume 77.2 fL (80.0-100.0); Monocytes # (auto) 0.6 10 ^3/uL (0-1.3); Monocytes % (auto) 12.3 % (0.0-12.0); Neutrophils # (auto) 2.7 10 ^3/uL (1.6-8.6); Nucleated Red Blood Cells % 0.1 %; Platelet Count (auto) 128 10^3/uL (140-450); Red Cell Distribution Width 16.8 % (11.8-14.3); White Blood Cell 5.3 10^3/uL (4.4-10.8)
[2024-02-08 10:46] LABS: % Iron Saturation 25.2 % (20-55)
[2024-02-08 10:47] LABS: Alanine Aminotransferase 11 U/L (7-40); Albumin 4.3 g/dL (3.2-4.8); Alkaline Phosphatase 76 U/L (46-116); Anion Gap 0 (5-15); Aspartate Aminotransferase 13 U/L (13-40); BUN/Creatinine Ratio 14.6 (10.0-20.0); Blood Urea Nitrogen 19 mg/dL (9-23); Calcium 9.6 mg/dL (8.7-10.4); Carbon Dioxide 31 mmol/L (20-30); Chloride 105 mmol/L (98-107); Cholesterol 95 mg/dL (< 200); Glucose 103 mg/dL (74-106); HDL Cholesterol 28 mg/dL (40-59); LDL Cholesterol 42 mg/dL (< 100); Sodium 136 mmol/L (136-145); Triglycerides 132 mg/dL (< 150)
[2024-02-08 10:48] LABS: Bilirubin, Total 0.9 mg/dL (0.2-1.0); Total Protein 6.9 g/dL (5.7-8.2)
== END | disposition home or self-care (01) ==
LOC: LAB 09:26
PROVIDERS: ATTEND Family Medicine
DX: K76.0 Fatty (change of) liver, not elsewhere classified (principal); E05.90 Thyrotoxicosis, unspecified without thyrotoxic crisis or storm; R10.9 Unspecified abdominal pain; K57.90 Diverticulosis of intestine, part unspecified, without perforation or abscess without bleeding; Z79.899 Other long term (current) drug therapy
CPT/HCPCS: 36415; 80053; 80061; 83036; 83540; 83550; 84443; 85025